=== PATIENT | male | born 1970 | race African-American/Black ===

== ENCOUNTER 2018-11-03 15:33 | Inpatient (IN) | payer MEDICARE, MEDICAID ==
[~2018-11-03] VITALS: Ht 170.2 cm; Wt 99.9 kg
[2018-11-03] MEDS ORDERED: ATOR20TA65 PO (15:44)
[2018-11-03] MEDS ORDERED: METO-539 PO (15:44)
[2018-11-03] MEDS ORDERED: METF-416 PO (15:44)
[2018-11-03] MEDS ORDERED: QUET50TA PO (15:44)
[2018-11-03] MEDS ORDERED: ATOR20TA PO (15:44)
[2018-11-03] MEDS ORDERED: MORPHINE SULFATE 4 MG/ML CPJ (NOT FOR IM USE) IV STA (16:26)
[2018-11-03] MEDS ORDERED: ONDANSETRON HCL 4MG/2ML INJ IV STA (16:26)
[2018-11-03] MEDS ORDERED: NITROGLYCERIN OINT 1GM/INCH UDPKT TD ONE (16:30)
[2018-11-03] MEDS ORDERED: ASPIRIN 81MG TABLET PO ONE (16:30)
[2018-11-03 17:14] LABS: EOSINOPHILS % 2.3 % (0.0-5.0); HEMOGLOBIN. 13.2 g/dL (14.0-18.0); LYMPHOCYTES % 31.5 % (20.0-50.0); MEAN CORPUSCULAR HEMOGLOBIN 26.2 pg (28.0-32.0); MEAN CORPUSCULAR VOLUME 79.7 fL (80.0-94.0); MEAN PLATELET VOLUME 10.1 fl (7.4-10.4); MONOCYTES % 9.1 % (2.0-8.0); NEUTROPHILS % 56.1 % (40.0-76.0); PLATELET 219 x1000/uL (130-400); RED BLOOD CELL COUNT 5.03 mill/uL (4.7-6.1); RED CELL DISTRIBUTION WIDTH 15.5 % (11.6-14.6)
[2018-11-03 17:16] LABS: CHLORIDE 105 mEq/L (98-107)
[2018-11-03 17:20] LABS: ETHANOL BLOOD < 10 mg/dL
[2018-11-03 17:21] LABS: PARTIAL THROMBOPLASTIN TIME 26.4 sec (23.4-31.0); PROTHROMBIN TIME 10.4 sec (9.6-11.0)
[2018-11-03 18:00] LABS: *AMPHETAMINES SCREEN URINE NEGATIVE (NEGATIVE); *BARBITURATES SCREEN URINE NEGATIVE (NEGATIVE); *BENZODIAZEPINES SCREEN URINE NEGATIVE (NEGATIVE); *COCAINE SCREEN URINE NEGATIVE (NEGATIVE)
[2018-11-03 18:01] LABS: CANNABINOID URINE SCREEN PRESUMTIVE POSITIVE (NEGATIVE); METHADONE URINE SCREEN NEGATIVE (NEGATIVE); OPIATES URINE SCREEN NEGATIVE (NEGATIVE)
[2018-11-03 18:41] LABS: PHENCYCLIDINE URINE SCREEN NEGATIVE (NEGATIVE)
[2018-11-03] MEDS ORDERED: ONDANSETRON HCL 4MG/2ML INJ IV PRN (21:00)
[2018-11-03] MEDS ORDERED: DIPHENHYDRAMINE 50MG/ML VIAL IV PRN (21:00)
[2018-11-03] MEDS ORDERED: ACETAMINOPHEN 325MG TABLET PO PRN (21:00)
[2018-11-03] MEDS ORDERED: CLONIDINE 0.1MG TABLET PO PRN (21:00)
[2018-11-03] MEDS ORDERED: HYDRALAZINE 20MG/ML VIAL IV PRN (21:00)
[2018-11-03] MEDS ORDERED: DOCUSATE SODIUM 100MG CAPSULE PO PRN (21:00)
[2018-11-03] MEDS ORDERED: LORAZEPAM 2MG/ML CPJ IV PRN (21:00)
[2018-11-03] MEDS ORDERED: MAGNESIUM/ALUMINUM HYDROXIDE/SIMETHICONE 30ML UDC PO PRN (21:00)
[2018-11-03] MEDS ORDERED: GUAIFENESIN 200MG/10ML SUGAR FREE UDC PO PRN (21:00)
[2018-11-03] MEDS ORDERED: IPRATROPIUM/ALBUTEROL 0.5-3(2.5)MG/3ML NEB INH PRN (21:00)
[2018-11-03 22:30] VITALS: BP 139/76
[2018-11-03] MEDS ORDERED: HYDROMORPHONE HCL/PF 2MG/ML CPJ IV PRN (22:45)
[2018-11-03] MEDS ORDERED: DEXTROSE 50% WATER 50ML SYRINGE IV PRN (22:55)
[2018-11-03 23:00] VITALS: BP 139/76
[2018-11-03] MEDS ORDERED: NA PHOS,M-B/NA PHOS,DI-BA ENEMA 118ML PR PRN (23:00)
[2018-11-03] MEDS: BLOOD SUGAR DIAGNOSTIC STRIP TEST SCH (23:03)
[2018-11-03] MEDS: HYDROCODONE/ACETAMINOPHEN 10/325MG TABLET PO PRN (23:04)
[2018-11-03] MEDS: INSULIN LISPRO 100 UNITS/ML SUBCUT SCH (23:05)
[2018-11-04 00:35] LABS: CREATINE KINASE 166 IU/L (39-308)
[2018-11-04 00:36] LABS: CREATINE KINASE MB FRACTION 1.4 ng/mL (0.5-3.6)
[2018-11-04 04:00] VITALS: BP 137/85
[2018-11-04] MEDS: SODIUM CHLORIDE 0.9% INJ 3ML FLUSH IVF SCH ×3 (05:58→22:17)
[2018-11-04 06:06] LABS: BASOPHILS % 1.1 % (0.0-2.0); EOSINOPHILS % 3.7 % (0.0-5.0); HEMATOCRIT. 38.2 % (42.0-52.0); HEMOGLOBIN. 12.5 g/dL (14.0-18.0); LYMPHOCYTES % 37.4 % (20.0-50.0); MEAN CORPUSCULAR HEMOGLOBIN 26.2 pg (28.0-32.0); MEAN CORPUSCULAR VOLUME 79.9 fL (80.0-94.0); MEAN PLATELET VOLUME 9.8 fl (7.4-10.4); NEUTROPHILS % 45.8 % (40.0-76.0); PLATELET 184 x1000/uL (130-400); RED BLOOD CELL COUNT 4.77 mill/uL (4.7-6.1); RED CELL DISTRIBUTION WIDTH 15.3 % (11.6-14.6)
[2018-11-04 06:15] LABS: CHLORIDE 108 mEq/L (98-107)
[2018-11-04 06:23] LABS: HDL CHOLESTEROL 24 mg/dL (40-59)
[2018-11-04 06:25] LABS: T4 FREE 1.33 ng/dL (0.76-1.46)
[2018-11-04 06:26] LABS: CREATINE KINASE 156 IU/L (39-308); LDL CHOLESTEROL 51 mg/dL (5-100)
[2018-11-04 06:27] LABS: CREATINE KINASE MB FRACTION 1.3 ng/mL (0.5-3.6)
[2018-11-04] MEDS: BLOOD SUGAR DIAGNOSTIC STRIP TEST SCH ×4 (07:40→21:00)
[2018-11-04] MEDS ORDERED: REGADENOSON 0.4 MG/5 ML IV NR (07:45)
[2018-11-04] MEDS: INSULIN LISPRO 100 UNITS/ML SUBCUT SCH ×4 (07:50→22:15)
[2018-11-04 08:00] VITALS: BP 148/75
[2018-11-04] MEDS: ASPIRIN 81MG EC TABLET PO SCH (09:00)
[2018-11-04] MEDS: ENOXAPARIN 30MG/0.3ML SYR SUBCUT SCH ×2 (10:54→22:12)
[2018-11-04] MEDS ORDERED: REGADENOSON 0.4 MG/5 ML IV ONE (12:54)
[2018-11-04] MEDS ORDERED: IOHEXOL-350 100 ML BOTTLE ONE (13:54)
[2018-11-04 16:00] VITALS: BP 158/64
[2018-11-04 16:20] LABS: CREATINE KINASE 159 IU/L (39-308)
[2018-11-04 16:21] LABS: CREATINE KINASE MB FRACTION 1.2 ng/mL (0.5-3.6)
[2018-11-04 20:00] VITALS: BP 140/86
[2018-11-05] VITALS: BP 149/84
[2018-11-05 01:17] LABS: CREATINE KINASE MB FRACTION < 1.0 ng/mL (0.5-3.6)
[2018-11-05 01:21] LABS: CREATINE KINASE 129 IU/L (39-308)
[2018-11-05 04:00] VITALS: BP 141/76
[2018-11-05 08:00] VITALS: BP 151/88
[2018-11-05 08:02] LABS: CREATINE KINASE 135 IU/L (39-308)
[2018-11-05] MEDS: BLOOD SUGAR DIAGNOSTIC STRIP TEST SCH ×3 (08:05→16:47)
[2018-11-05] MEDS: ENOXAPARIN 30MG/0.3ML SYR SUBCUT SCH (09:47)
[2018-11-05] MEDS: ASPIRIN 81MG EC TABLET PO SCH (09:48)
[2018-11-05] MEDS: HYDROCODONE/ACETAMINOPHEN 10/325MG TABLET PO PRN ×2 (09:49→16:43)
[2018-11-05] MEDS: INSULIN LISPRO 100 UNITS/ML SUBCUT SCH ×3 (09:50→16:48)
[2018-11-05 12:00] VITALS: BP 156/92
[2018-11-05] MEDS: SODIUM CHLORIDE 0.9% INJ 3ML FLUSH IVF SCH (14:44)
[2018-11-05 16:00] VITALS: BP 165/83
[2018-11-05 17:05] VITALS: BP 165/83
== END 2018-11-05 18:15 | disposition home or self-care (01) | DRG 313 ==
LOC: ER 15:33 → 7WST 16:37 → ENRESERV 21:03
PROVIDERS: ADMIT Internal Medicine; ATTEND Internal Medicine
DX: R07.89 Other chest pain (principal); E78.5 Hyperlipidemia, unspecified; F12.90 Cannabis use, unspecified, uncomplicated; I10 Essential (primary) hypertension; E11.9 Type 2 diabetes mellitus without complications; I25.10 Atherosclerotic heart disease of native coronary artery without angina pectoris; Z87.891 Personal history of nicotine dependence; Z89.512 Acquired absence of left leg below knee; I25.2 Old myocardial infarction; Z98.61 Coronary angioplasty status; Z79.899 Other long term (current) drug therapy
CPT/HCPCS: 36415; 71045; 71275; 78452; 80061; 80305; 80320; 82550; 82553; 82962; 83036; 83735; 83880; 84439; 84443; 84484; 85379; 93005; 93017; 93306; 93970; 96374; 96375; 99285; A9500; J1650; J1815; J2270; J2405; J2785; Q9967; G0480